=== PATIENT | female | born 1935 | race Caucasian/White ===

== ENCOUNTER 2019-07-24 13:27 | Inpatient (IN) ==
[2019-07-24] MEDS ORDERED: ASPIRIN PO ONE (13:34)
[2019-07-24] MEDS ORDERED: NITROGLYCERIN SL ONE (13:48)
[2019-07-24 13:57] LABS: BASO# 0.02 X1000 (0.0-0.2); BASO% 0.4 % (0.0-0.8); EOS# 0.08 X1000 (0.0-0.7); EOS% 1.5 % (0.0-10.0); HEMATOCRIT 41.8 % (37.0-47.0); IMM GRAN# 0.01 X1000 (0.0-0.04); IMM GRAN% 0.2 % (0.0-0.5); LYMPH# 1.06 X1000 (1.2-3.4); LYMPH% 20.4 % (20.5-51.1); MCH 30.5 PG (27-31); MCHC 31.1 g/dL (33-37); MCV 98.1 FL (81-99); MONO# 0.56 X1000 (0.11-0.59); MONO% 10.8 % (1.7-9.3); MPV 10.8 FL (7.4-10.4); NEUT# 3.47 X1000 (1.4-6.5); NEUT% 66.7 % (42.2-75.2); PLT 206 X1000 (130-400); RBC 4.26 XMIL (4.2-5.4); RDW 14.6 % (11.5-14.5)
[2019-07-24 14:07] LABS: INR 2.35; PROTIME 27.1 Seconds (11.0-16.0)
[2019-07-24 14:08] LABS: PTT 43.4 Seconds (22.3-41.8)
[2019-07-24 14:14] LABS: AGAP 11; ALBUMIN 4.7 g/dL (3.5-5.0); ALKALINE PHOSPHATASE 76 U/L (32-104); BUN 13 mg/dL (8-22); CALCIUM 9.9 mg/dL (8.8-10.2); CHLORIDE 100 mmol/L (98-107); CK PROFILE 123 U/L (24-173); COSMO 288; CREATININE 0.7 mg/dL (0.5-0.9); ESTIMATED GFR > 60; GLUCOSE 146 mg/dL (70-104); GOT 40 U/L (10-30); GPT 17 U/L (10-36); POTASSIUM 4.9 mmol/L (3.5-5.1); SODIUM 143 mmol/L (136-145); TCO2 32 mmol/L (25-35); TOTAL PROTEIN 7.9 g/dL (6.3-8.3)
--- NOTE | 2019-07-24 14:20 | Diag Imaging Result Doc PS360 ---
EXAM: CHEST-PORTABLE HISTORY: cp TECHNIQUE: Single view COMPARISON: 11/23/2016 FINDINGS: The lungs are well expanded. There are sternal wires. The heart is mildly enlarged. No pulmonary edema. Tiny right pleural effusion with basilar atelectasis. No consolidation. IMPRESSION: Cardiomegaly with a small right pleural effusion and basilar atelectasis Electronically signed by Khadar Wise 07/24/2019 2:17 PM
[2019-07-24] MEDS ORDERED: LASIX IV ONE (14:27)
--- NOTE | 2019-07-24 16:58 | EKG Report ---
Test Performed on : 07/24/2019 4:50:00 PM Test Reason : chest pain Blood Pressure : / mmHG Vent. Rate : 050 BPM Atrial Rate : 053 BPM P-R Int : 000 ms QRS Dur : 106 ms QT Int : 404 ms P-R-T Axes : 000 042 071 degrees QTc Int : 368 ms Junctional rhythm. Incomplete right bundle branch block Nonspecific ST and T wave abnormality Abnormal ECG When compared with ECG of 24-JUL-2019 13:37, (Unconfirmed) Junctional rhythm. has replaced Atrial fibrillation. Nonspecific T wave abnormality no longer evident in Inferior leads Nonspecific T wave abnormality has replaced inverted T waves in Lateral leads Unconfirmed Result
[2019-07-24] MEDS: ZOCOR PO SCH (21:03)
[2019-07-24] MEDS: COUMADIN PO SCH (21:03)
--- NOTE | 2019-07-25 00:52 | HISTORY AND PHYSICAL ---
CHIEF COMPLAINT: Chest pain and burping. HISTORY OF PRESENT ILLNESS: Patient is a very pleasant 84-year-old female who presented to the emergency department noting that she is having excessive burping, belching, chest pressure. It started last night when awake and came back this morning and since worsened. Therefore, she came to the ER. States she normally does not have any kind of burping, belching or chest pressure. Did have a CABG in 2000. Does not have any extenuation of this since then. 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 Concepcion. PAST MEDICAL HISTORY: Atrial fibrillation, coronary artery disease, hypertension, hyperlipidemia, history of [place], status post CABG in 2000, reflux, CVA, history of thyroid cancer. SURGICAL HISTORY: Positive for CABG. FAMILY HISTORY: Noncontributory. SOCIAL HISTORY: She does not smoke or drink. She is . Dr. Crabtree is her primary care. ALLERGIES: Mobic and Vioxx. MEDICATIONS: Synthroid 200, simvastatin 20, digoxin 125, diltiazem 60 q.6, furosemide 40, Imdur 30, MiraLAX 17, potassium, Coumadin. REVIEW OF SYSTEMS: As noted above. States she has been tired, fatigued maybe more so than usual. She has had increasing shortness of breath, dyspnea. She has had increasing burping, belching with some chest pressure. Denies any radiation of said pain or pressure. Denies any cough or nasal congestion. Denies dysuria, urinary frequency, urgency, hesitancy. Denies any polyuria or polydipsia. PHYSICAL EXAMINATION: VITAL SIGNS: Reviewed. She is afebrile. Temperature 98 degrees, pulse 60s although the family notes that her heart rate has been as low in the 30s, BP 147/82, saturation 95% on room air. GENERAL: Patient is awake. She is pleasant. She is in mild respiratory breath but the family seems to acknowledge that this is her chronic state. HEENT: Normocephalic. NECK: Supple. CARDIOVASCULAR: Currently rate controlled, irregular. CHEST: Clear and nonlabored. No wheezing. ABDOMEN: Soft, nondistended, nontender. EXTREMITIES: Moves all extremities. NEUROLOGIC: No changes. LABORATORIES: Reviewed. BNP 4670. INR 2.35. Glucose 146. ASSESSMENT: 1. Bradycardia, although currently rate controlled. 2. Atrial fibrillation. 3. Cardiomegaly. 4. Known coronary artery disease status post CABG in 2000. 5. Hypothyroidism. 6. Hyperglycemia. PLAN: We are going to admit her to the hospital, transfer her to [facility] to the PVC unit so she can be closely monitored. Consult Cardiology. Further orders as needed. We will check troponin and we will rule out [place]. cc: Panda Vega MD
[2019-07-25 00:56] LABS: URINE SOURCE CLEAN CATCH
[2019-07-25 01:01] LABS: BILIRUBIN URINE NEGATIVE (NEGATIVE); BLOOD URINE NEGATIVE (NEGATIVE); COLOR YELLOW; GLUCOSE URINE NEGATIVE (NEGATIVE); KETONE URINE NEGATIVE (NEGATIVE); LEUKOCYTES URINE NEGATIVE (NEGATIVE); NITRITE URINE NEGATIVE (NEGATIVE); PROTEIN URINE NEGATIVE (NEGATIVE); SP GRAVITY URINE 1.013; TURBIDITY URINE CLEAR (CLEAR); UR EPITHELIAL CELLS <10 /HPF (<10); URINE BACTERIA NEGATIVE /HPF; URINE RBC <10 /HPF (<10); URINE WBC <10 /HPF (<10); UROBILINOGEN URINE NORMAL (NORMAL)
[2019-07-25] MEDS: SYNTHROID PO SCH (06:08)
[2019-07-25 06:33] LABS: HEMATOCRIT 39.1 % (37.0-47.0); HEMOGLOBIN 12.6 g/dL (12.0-16.0); MCH 32.1 PG (27-31); MCHC 32.2 g/dL (33-37); MCV 99.7 FL (81-99); MPV 10.7 FL (7.4-10.4); RBC 3.92 XMIL (4.2-5.4); RDW 14.7 % (11.5-14.5); WBC 4.02 X1000 (4.8-10.8)
[2019-07-25 07:09] LABS: AGAP 9; ALB/GLOB RATIO 1.2; ALBUMIN 3.6 g/dL (3.5-5.0); ALKALINE PHOSPHATASE 59 U/L (32-104); BUN 13 mg/dL (8-22); CHLORIDE 99 mmol/L (98-107); COSMO 284; CREATININE 0.7 mg/dL (0.5-0.9); ESTIMATED GFR > 60; GLUCOSE 71 mg/dL (70-104); GOT 27 U/L (10-30); GPT 13 U/L (10-36); MAGNESIUM 2.1 mg/dL (1.5-2.7); POTASSIUM 3.6 mmol/L (3.5-5.1); SODIUM 143 mmol/L (136-145); TCO2 35 mmol/L (25-35); TOTAL BILIRUBIN 0.48 mg/dL (0.20-1.00); TOTAL PROTEIN 6.6 g/dL (6.3-8.3)
[2019-07-25] MEDS: KLOR-CON PO SCH (08:44)
[2019-07-25] MEDS: LASIX PO SCH (08:44)
--- NOTE | 2019-07-25 10:03 | EKG Report ---
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 Rate : 073 BPM Atrial Rate : 267 BPM P-R Int : 000 ms QRS Dur : 104 ms QT Int : 352 ms P-R-T Axes : 000 068 -60 degrees QTc Int : 387 ms Atrial fibrillation. with premature ventricular or aberrantly conducted complexes. Incomplete right bundle branch block ST & T wave abnormality, consider lateral ischemia Abnormal ECG When compared with ECG of 23-NOV-2016 22:27, Inverted T waves have replaced nonspecific T wave abnormality in Lateral leads Unconfirmed Result
--- NOTE | 2019-07-25 13:49 | CARDIOLOGY CONSULTATION ---
DATE: 07/25/2019 HISTORY OF PRESENT ILLNESS: An 84-year-old lady with known history of coronary artery disease, coronary artery bypass grafting, atrial fibrillation, who presented to the emergency room with having chest pressure and associated with belching, which was there off and on for 1 to 2 days prior to her coming to the emergency room. She came to the emergency room. Electrocardiogram revealed atrial fibrillation with nonspecific ST-T changes. However, telemetry there in the [facility] Emergency Room revealed a heart rate from going into the 20s and 30s. The patient was subsequently admitted at [facility]. She does not complain of any palpitations. She does not have any dizziness or syncope. The main reason for her coming was the chest pressure she has had. This morning she has been pain-free. She feels well. There is no orthopnea, paroxysmal nocturnal dyspnea. She has chronic shortness of breath which is grade 2- 3. This has been stable. REVIEW OF SYSTEM: A 14-point review of systems was done. GI System: There is no history of nausea, vomiting, diarrhea. There is no history of hematemesis or melena. Central nervous system: No focal weakness to suggest a CVA or TIA. System: There is no dysuria or hematuria. PAST MEDICAL HISTORY: 1. Coronary artery disease, status post coronary artery bypass grafting in 2000 with saphenous vein graft to LAD, saphenous vein graft to OM, saphenous vein graft to PDA at [facility]. Last cardiac catheterization 2010. Saphenous vein graft to RCA was patent. Saphenous vein graft to diagonal was patent. Saphenous vein graft to LAD was ectatic with significant other 3 vessel disease. 2. History of systolic dysfunction. 3. Tricuspid regurgitation. 4. Pulmonary fibrosis, pulmonary insufficiency. 5. Pulmonary arterial hypertension. 6. Bilateral carotid disease status post right carotid endarterectomy in July 2004. 7. Chronic atrial fibrillation. 8. Anticoagulation therapy. 9. Hypertension. 10. Hyperlipidemia. 11. History of thyroidectomy. HOME MEDICATIONS: 1. Levothyroxine 0.2 mg a day. 2. Simvastatin 20 mg a day. 3. Potassium supplements. 4. Cardizem 60 mg p.o. q. 6 hourly. 5. Digoxin 0.125 mg a day. 6. Isosorbide mononitrate 30. 7. Lasix 40. 8. Coumadin as directed. ALLERGIES: She is allergic to meloxicam, rofecoxib. PHYSICAL EXAMINATION: Vital Signs: Blood pressure was 152/65. Cardiovascular: First and second heart sounds were heard. There was a soft systolic murmur. Respiratory System: Distant breath sounds. Scattered wheeze. Abdomen: Soft, nontender. There was no guarding or rigidity. Bowel sounds were heard. Central nervous system: Alert and was moving all 4 extremities. Extremities: Examination of extremities revealed no pedal edema. HEENT: Atraumatic, normocephalic. Pupils were equal and reacting to light. LABORATORY EXAMINATION: Revealed sodium 143, potassium 3.6, BUN 13, creatinine 0.7. Troponin T high sensitivities were normal with the level of 17. TSH 3.71. Liver function tests were normal. INR was 2.35. Hematology: WBC 4, hemoglobin 12.6, RBC 3.94, platelet count 157, hematocrit 39.1. IMAGING STUDIES: Chest x-ray: Cardiomegaly with basilar atelectasis. Small right pleural effusion. ASSESSMENT AND PLAN: 1. Ms. Linda Levi is an 84-year-old lady with history of atrial fibrillation, coronary artery disease, coronary artery bypass grafting, on anticoagulation therapy. 2. History of peripheral vascular disease. 3. Hypertension. She comes in comes in with complaints of having 2 days intermittent episodes of chest discomfort. 1. She has been ruled out for myocardial infarction by cardiac enzymes. 2. We will get an echocardiogram to assess cardiac and valvular function. 3. We will set her up to undergo a Cardiolite stress test to assess for and rule out ischemia. 4. As far as atrial fibrillation is concerned, she has had significant gustavo arrhythmias noted in the emergency room as mentioned above. I will discontinue the digoxin and decrease the dosage of Cardizem to 30 mg three times a day, and we will try titrate dosage if required. 5. Anticoagulation therapy. She is on Coumadin. INR is therapeutic. I have not made any changes. 6. Coronary artery disease, status post coronary artery bypass graft. If her stress test is abnormal and cardiac catheterization is required, the patient would like to have that done at [facility]. cc: Francisco Ballard MD
--- NOTE | 2019-07-25 18:41 | PROGRESS NOTE ---
DATE: 07/25/2019 INTERVAL HISTORY: Patient with no further chest heaviness or bloated feeling. No new complaints. Patient still with some intermittent bradycardia and mild tachycardia which are alternating. The patient has been largely asymptomatic. REVIEW OF SYSTEMS: Twelve point review of systems negative except as per interval history. LABS: WBC 4.0, hemoglobin 12.6, hematocrit 39.1, platelets 157,000. Sodium 143, potassium 3.6, BUN 13, creatinine 0.7, glucose 71, troponin negative x2. BNP 4670. Urinalysis unremarkable. IMAGING: Chest x-ray with minimal right pleural effusion and cardiomegaly otherwise but no acute process. VITALS: T-max 97.9 degrees, pulse 47 to 110, respirations 18, blood pressure 152/65, O2 saturation 95% on room air. PHYSICAL EXAMINATION: General: No acute distress, thin. Vitals as above. HEENT: Normocephalic, atraumatic moist. Moist mucous membranes. No cervical adenopathy. Cardiovascular: Bradycardic but regular at the time my exam, no murmurs noted. Pulmonary: Clear to auscultation bilaterally. No wheezing, rales or rhonchi. Abdomen: Soft, nontender, nondistended. Bowel sounds positive. Extremities: Peripheral pulses intact. No clubbing, cyanosis or edema. Neurologic: Cranial nerves grossly intact. No focal deficits identified. Psychiatric: Normal mood and affect. Awake, alert, oriented x3. ASSESSMENT AND PLAN: 1. Chest pressure. Patient's primary complaint of belching or bloating seems like it is likely benign and gastrointestinal related but she does endorse some dyspnea and substernal chest tightness which occur primarily with exertion and resolve with rest which does raise some concern for unstable angina. Otherwise cardiac workup has been largely unremarkable with negative troponins. EKG with bradycardia and an old right bundle branch block but no acute ST changes, does have moderately elevated BNP although not really any clinical sign of volume overload. Last echocardiogram was unremarkable although that was back in 2016. Given alternating bradycardia and tachycardia and substernal chest pressure worse with exertion, will ask cardiology to evaluate. At the very least I suspect we will need to decrease her dose of Cardizem which we are currently holding and she may end up needing stress test but we will see what Cardiology says. 2. Paroxysmal atrial fibrillation. No atrial fibrillation noted here but has had intermittent bradycardia. Holding home diltiazem currently. If we restart then will likely be at a lower dose. Continuing home Coumadin. INR was therapeutic. 3. Coronary artery disease, uncertain why she is not on aspirin but will try to clarify that. 4. Hypertension largely pretty good control on current medication. We will continue to monitor. 5. Hyperlipidemia. Continue statin. 6. Hypothyroidism. Continue Synthroid.
[2019-07-25] MEDS: IMDUR PO SCH (20:41)
[2019-07-25] MEDS: COUMADIN PO SCH (20:41)
[2019-07-25] MEDS: ZOCOR PO SCH (21:42)
[2019-07-26] MEDS: SYNTHROID PO SCH (06:29)
[2019-07-26] MEDS: KLOR-CON PO SCH (08:24)
[2019-07-26] MEDS: LASIX PO SCH (08:25)
[2019-07-26] MEDS: CARDIZEM PO SCH ×3 (08:25→20:17)
--- NOTE | 2019-07-26 14:47 | PROGRESS NOTE ---
DATE: 07/26/2019 INTERVAL HISTORY: Patient with no further chest heaviness. Still occasionally mildly bradycardic but no severe bradycardia like she had on admission. Cardiology planning on stress test in the morning. REVIEW OF SYSTEMS: Twelve point review of systems negative except as per interval history. LABS: WBC 4.0, hemoglobin 12.6, hematocrit 39.1, platelets 157,000. Complete metabolic panel unremarkable. VITALS: T-max 98.0 degrees, pulse of 52-79, respirations 17, blood pressure 93/62, O2 saturation 100% on 2 L by nasal cannula. ASSESSMENT AND PLAN: 1. Chest pressure, bradycardia. Patient's primary complaint of belching and bloating but also relates some dyspnea and substernal chest heaviness or tightness which occurs with exertion and resolves with rest. Some concern for unstable angina. Otherwise, cardiac workup has been negative with negative troponins. Did have fairly significant bradycardia on admission. Continued to have mild bradycardia since but not as severe. Reportedly had heart rate down into the 30s on initial presentation. Cardiology on board and planning a stress test in the morning for further evaluation. Holding home Cardizem currently. 2. Paroxysmal atrial fibrillation. Has been essentially normal sinus or sinus bradycardia here. Holding home diltiazem as above because of bradycardia. Continue home Coumadin. 3. Coronary artery disease, known. 4. Hypertension. Good control on current medication. Monitor. 5. Hyperlipidemia. Continue statin. 6. Hypothyroidism. Continue Synthroid.
[2019-07-26] MEDS: COUMADIN PO SCH (20:17)
[2019-07-26] MEDS: ZOCOR PO SCH (20:18)
[2019-07-26] MEDS: IMDUR PO SCH (20:18)
--- NOTE | 2019-07-26 20:23 | ECHO REPORT ---
ORDER DATE: 07/25/2019 ECHOCARDIOGRAPHIC MEASUREMENTS: 1. Interventricular septum 0.9. 2. Left ventricular posterior wall 0.8. 3. Diastolic diameter 4.8. 4. Left atrium 4. 5. Aorta 2.9. SUMMARY: 1. Atrial fibrillation was noted. 2. Aortic valve leaflets were sclerosed, trileaflet opening normally. 3. Pulmonic valve was normal. 4. Tricuspid valve was normal. 5. Mitral valve was normal. 6. There is moderate mitral annular calcification. 7. Normal left ventricular cavity size. 8. Normal left ventricular cavity size. Estimated ejection fraction of 50%. There is apical hypokinesis. 9. Normal left ventricular cavity size. Estimated ejection fraction of 50%. There is apical hypokinesis. 10. There is apical hypokinesis. 11. There is moderate biatrial enlargement. 12. There is a peak velocity across the aortic valve less than 2 m/sec. There is no aortic stenosis or regurgitation. 13. Mild tricuspid regurgitation. 14. Peak velocity across the tricuspid valve was 3.4 m/sec. 15. Pulmonary artery systolic pressure of 61 mmHg. 16. There is pulmonary arterial hypertension. 17. There is mild mitral regurgitation. 18. Peak velocity across aortic valve less than 2 m/sec. 19. There is no aortic stenosis or regurgitation . 20. Normal right ventricular cavity size. 21. Mild right ventricular systolic dysfunction 22. There is no pericardial effusion or obvious intracardiac mass or thrombus seen. cc: Francisco Ballard MD
[2019-07-27] MEDS: SYNTHROID PO SCH (06:35)
[2019-07-27 07:39] VITALS: BP 127/68
[2019-07-27] MEDS: CARDIZEM PO SCH ×2 (08:58→13:32)
[2019-07-27] MEDS ORDERED: LEXISCAN ONE (11:18)
[2019-07-27] MEDS: KLOR-CON PO SCH (13:31)
[2019-07-27] MEDS: LASIX PO SCH (13:31)
--- NOTE | 2019-07-27 13:48 | PROGRESS NOTE ---
DATE: 07/27/2019 SUBJECTIVE: I have seen her in the nuclear lab. She seems to be doing okay. No complaints. OBJECTIVE: Blood pressure 127/68, heart rate of 66, respiratory rate of 19, temp 97.6 degrees.Cardiovascular: Regular rate and rhythm. Pulmonary: Bilateral breath sounds clear to auscultation. GI: Was soft, nontender, nondistended. Bowel sounds are positive. Extremity: No clubbing. LABORATORY DATA: White count is 4, hemoglobin and hematocrit 12 and 39 platelets 157,000. Basic was normal. PROBLEM LIST: 1. Chest pain, bradycardia. The patient seems to be doing okay. Her workup is negative. Her stress test is pending but has been completed. 2. Atrial fibrillation with sinus bradycardia, possible sick sinus syndrome, but could also be related to Cardizem which has been held and her heart rate seems to be doing okay. Her digoxin level was never checked, maybe we should go ahead and try to check that although it has been several days since she has been off of it. DISPOSITION: If her stress test is negative, it is possible she could go home now. She is on a lower dose Cardizem, really a 90 mg dose. She previously was on a 240 mg dose. Her INR is therapeutic as well but again that was several days ago. cc: Sarwat Hunter MD
--- NOTE | 2019-07-27 14:15 | Diag Imaging Result Document ---
PROCEDURE NAME: MYOCARDIAL PERF SCAN, STR/REST - 07/27/2019 SUMMARY: The patient was administered 11.4 mCi of technetium 99m sestamibi after which resting cardiac images were obtained. The patient was subsequently administered Lexiscan 0.4 mg intravenous, after which the heart rate went from 82 beats per minute to 96 beats per minute. The blood pressure went from 138/75 to 149/59. With Lexiscan, the patient denied chest discomfort. Following the administration of Lexiscan, the patient was administered 33.9 mCi of technetium 99m sestamibi, after which gated stress cardiac images were obtained. Baseline ECG demonstrated atrial fibrillation with occasional premature ventricular or aberrantly conducted complex and nonspecific ST and T-wave abnormality. With Lexiscan, baseline ST and T- wave abnormality did not change significantly. SPECT images were reconstructed in the short, horizontal, and vertical axis. Review of these images demonstrated a medium size severe defect in uptake involving the anterior apical region of the left ventricle on stress images which appears unchanged on resting images. No significant reversibility is evident. Gated images demonstrate a calculated left ejection fraction of 48% with apical severe hypokinesis to akinesis. CONCLUSIONS: 1. Adequate response to Lexiscan. 2. Clinically negative for chest pain. 3. Electrocardiographically baseline ST and T-wave abnormality did not change significantly following administration of Lexiscan. 4. Lexiscan sestamibi images demonstrate fixed severe medium size defect in the apex of the left ventricle with corresponding severe hypokinesis to akinesis as described, consistent with previous apical infarction. There is no convincing scintigraphic evidence of inducible myocardial ischemia. Calculated left ventricular ejection fraction is 48%. cc: MD Francisco Clark MD
--- NOTE | 2019-08-07 10:27 | PROVIDER DOCUMENTATION ---
This chart was entered by Brittany Campbell Scribe, acting as scribe for Estella Barboza MD. HPI-Chest Pain - General Chief Complaint: Chest Pain Stated Complaint: BURPING/HEAVY CHEST Time Seen by Provider: 07/24/19 13:40 Source: patient, family () Allergies/Adverse Reactions: Patient Allergies Allergy/AdvReac Type Severity Reaction Status Date / Time meloxicam [From Mobic] Allergy Unknown Verified 09/22/15 16:48 rofecoxib [From Vioxx] Allergy Unknown Verified 09/22/15 16:48 Home Medications: Home Medication List Medication Instructions Recorded Confirmed Last Taken Type Levothyroxine [Synthroid] 0.2 mg PO DAILY 08/12/14 07/24/19 09/22/15 09:00 History Simvastatin 20 mg PO HS 08/12/14 07/24/19 09/21/15 21:00 History Digoxin [Digox] 125 mcg PO DAILY 09/22/15 07/24/19 09/22/15 09:00 History Diltiazem [Cardizem] 60 mg PO Q6HR 09/22/15 07/24/19 09/22/15 09:00 History Furosemide 40 mg PO DAILY 09/22/15 07/24/19 09/22/15 History Isosorbide Mononitrate E.r. [Imdur] 30 mg PO HS 09/22/15 07/24/19 09/21/15 21:00 History Polyethylene Glycol 3350 [Miralax] 17 gm PO DAILY 09/22/15 07/24/19 09/22/15 09:00 History Potassium Chloride [Klor-Con M20] 20 meq PO DAILY 09/22/15 07/24/19 09/22/15 09:00 History Nitroglycerin 1 tab SL DIRECTED 11/23/16 07/24/19 Unknown History Warfarin [Coumadin] 4 mg PO QHS 07/24/19 07/24/19 Unknown History - History of Present Illness-CP Nature of Presenting Problem: 84 yowf presents to the ed with c/o excessive belching and chest pressure onset last night then resolved and came back this am and has worsened. pt sees dr lebron cardiology and last appointment was in mar 2019. pt has cardiac hx with CABG in 2000 Location: reports: substernal Chest Pain Radiation: reports: no radiation Quality of Pain: reports: fullness, pressure Severity in ED: moderate Onset/Duration: last night Timing: still present, intermittent, getting worse Context/Activities at Onset: reports: light activity Modifying Factors: improves with: nothing Associated Symptoms: reports: shortness of breath. denies: abdominal pain, nausea, vomiting Nitro Today/Relief: no nitro taken today Aspirin Treatment Today: 325 mg x 1, provided by ED Prior Chest Pain/Cardiac Workup: reports: cardiac cath, stress test, other (CABG) Similar Symptoms Previously?: Yes Recently Seen Here or By Another Healthcare Provider: No Review of Systems - Adult - REVIEW OF SYSTEMS - ADULT Constitutional: denies: chills, fever Eyes: reports: no symptoms reported Ears, Nose, Mouth & Throat: reports: no symptoms reported Cardiovascular: reports: see HPI, chest pain, irregular heart rate (hx of afib). denies: palpitations, syncope Respiratory: reports: shortness of breath. denies: cough, wheezing Gastrointestinal: denies: abdominal pain, diarrhea, frequent heartburn, nausea, vomiting Genitourinary: reports: no symptoms reported Musculoskeletal: denies: back pain, neck pain Integumentary: reports: no symptoms reported Neurological: denies: dizziness/vertigo, headache/migraines Psychiatric: reports: no symptoms reported Endocrine: reports: no symptoms reported Hematologic/Lymphatic: reports: no symptoms reported Allergic/Immunologic: reports: no symptoms reported All Other Systems: Reviewed and Negative Past History - Adult - PAST MEDICAL HISTORY-ADULT Review of Records: reports: Old Records Reviewed, Nursing Assessment Review, Medications Reviewed, Social history reviewed & non-contributory. Major Childhood Illnesses: reports: denies history Cardiovascular: reports: A-Fib, CAD, HTN, hyperlipidemia, OR, other (CABG) Respiratory: reports: denies history Gastrointestinal: reports: GERD Obstetrical/Gynecological: reports: denies history Genitourinary: reports: denies history Musculoskeletal: reports: denies history Hand Dominance: Right Handed Neurological: reports: CVA Psychiatric: reports: denies history Endocrine/Immune: reports: thyroid disorder ( thyroid cancer) Other Conditions: reports: denies history - PRIOR SURGERIES/PROCEDURES Surgical/Procedure History: reports: CABG, other (cataract removal) - IMMUNIZATION STATUS Childhood Immunizations: See Nurse Assessment Flu Vaccine: See Nurse Assessment - FAMILY HISTORY Family History: reviewed, not pertinent - SOCIAL HISTORY Smoking: denies Substance Use: denies Living Situation: family Physical Exam-General - PHYSICAL EXAM-ADULT Initial Vital Signs Reviewed: Yes - CONSTITUTIONAL General Appearance: appears well, alert, no apparent distress, thin - EYES Eyes: PERRL/EOMI, pink conjunctivae - HEAD, EARS, NOSE, MOUTH & THROAT HENMT: moist mucous membranes - NECK Neck: non-tender, full range of motion, supple, normal inspection - RESPIRATORY Respiratory: chest non-tender, lungs clear, normal breath sounds, no pleuratic chest pain, no respiratory distress, no accessory muscle use - CARDIOVASCULAR Cardiovascular: irregularly irregular, other (c/o belching and pessure in chest) - CHEST (BREASTS) Chest/Breast: other (well healed CABG scar) - GASTROINTESTINAL (ABDOMEN) Abdominal Exam: normal bowel sounds, non tender, soft - GENITOURINARY Female Genitalia/Pelvic Exam: deferred Rectal Exam: deferred Hemoccult Exam: deferred - LYMPHATIC Lymphatic: no adenopathy - MUSCULOSKELETAL Back Exam: no CVA tenderness, no vertebral tenderness Extremity: normal range of motion, non-tender, normal inspection - SKIN Integumentary: normal color, normal turgor, warm/dry - NEUROLOGIC Neurologic: grossly normal - PSYCHIATRIC Psych/Mental Status: normal mood/affect, normal thought content, normal thought process, oriented x 3 - HEART Score HEART Score: History: Slightly Suspicious HEART Score: ECG: Non-Specific Repolarization Disturbance/LBBB/PM HEART Score: Age: > or = 65 Years HEART Score: Risk Factors for Atherosclerotic Disease: > or = 3 Risk Factors or History of Atherosclerotic Disease Progress - PLAN OF CARE/RESULTS Progress/Plan/Lab Results: Vital Signs - 8 hr 07/24/19 13:30 07/24/19 13:33 07/24/19 15:55 Temperature 98 F 98 F Pulse Rate 76 56 L Respiratory Rate 18 20 Blood Pressure 147/82 126/68 O2 Sat by Pulse Oximetry 95 95 07/24/19 16:35 Temperature Pulse Rate 56 L Respiratory Rate 20 Blood Pressure 153/73 O2 Sat by Pulse Oximetry 95 Laboratory Results - last 24 hr 07/24/19 07/24/19 07/24/19 13:40 13:40 13:40 WBC 5.20 RBC 4.26 Hgb 13.0 Hct 41.8 MCV 98.1 MCH 30.5 MCHC 31.1 L RDW Std Deviation 14.6 H Plt Count 206 MPV 10.8 H Immature Gran % (Auto) 0.2 Neut % (Auto) 66.7 Lymph % (Auto) 20.4 L Dag[place] % (Auto) 10.8 H Eos % (Auto) 1.5 Baso % (Auto) 0.4 Immature Gran # (Auto) 0.01 Neut # (Auto) 3.47 Lymph # (Auto) 1.06 L [place] # (Auto) 0.56 Eos # (Auto) 0.08 Baso # (Auto) 0.02 PT INR PTT (Actin FS) Sodium 143 Potassium 4.9 Chloride 100 Carbon Dioxide 32 Anion Gap 11 BUN 13 Creatinine 0.7 Estimated GFR/1.73 m2 > 60 BUN/Creatinine Ratio 19 Glucose 146 H Calculated Osmolality 288 Calcium 9.9 Total Bilirubin 0.60 AST 40 H ALT 17 Alkaline Phosphatase 76 Creatine Kinase 123 Troponin T High Sens [id number] Pept 4670 H Total Protein 7.9 Albumin 4.7 Globulin 3.0 Albumin/Globulin Ratio 1.0 07/24/19 07/24/19 13:40 13:40 WBC RBC Hgb Hct MCV MCH MCHC RDW Std Deviation Plt Count MPV Immature Gran % (Auto) Neut % (Auto) Lymph % (Auto) Daggett % (Auto) Eos % (Auto) Baso % (Auto) Immature Gran # (Auto) Neut # (Auto) Lymph # (Auto) Daggett # (Auto) Eos # (Auto) Baso # (Auto) PT 27.1 H INR 2.35 PTT (Actin FS) 43.4 H Sodium Potassium Chloride Carbon Dioxide Anion Gap BUN Creatinine Estimated GFR/1.73 m2 BUN/Creatinine Ratio Glucose Calculated Osmolality Calcium Total Bilirubin AST ALT Alkaline Phosphatase Creatine Kinase Troponin T High Sens 17 Usg-H-Hlbwhxrocxn Pept Total Protein Albumin Globulin Albumin/Globulin Ratio Orders Category Date Time Status Cardiac Monitoring DIRECTED Care 07/24/19 13:34 Active Oxygen Therapy- ED Nursing DIRECTED Care 07/24/19 13:34 Active Saline Loc NOW Care 07/24/19 13:34 Active CHEST-PORTABLE [RAD] Stat Exams 07/24/19 13:58 Completed CBC WITH ELECTRONIC DIFF [HEME] Stat Lab 07/24/19 13:40 Completed CBC WITH NO DIFF [HEME] Routine Lab 07/25/19 05:00 Ordered CK PROFILE [SP CHEM] Stat Lab 07/24/19 13:40 Completed CK PROFILE [SP CHEM] Urgent Lab 07/24/19 16:46 Received COMPREHENSIVE METABOLIC PANEL [CHEM] Routine Lab 07/25/19 05:00 Ordered COMPREHENSIVE METABOLIC PANEL [CHEM] Stat Lab 07/24/19 13:40 Completed MAGNESIUM [CHEM] Routine Lab 07/25/19 05:00 Ordered PRO B-NATRIURETIC PEPTIDE Stat Lab 07/24/19 13:40 Completed PROTIME WITH INR [COAG] Stat Lab 07/24/19 13:40 Completed PTT [COAG] Stat Lab 07/24/19 13:40 Completed TROPONIN T HIGH SENSITIVITY Stat Lab 07/24/19 13:40 Completed TROPONIN T HIGH SENSITIVITY Stat Lab 07/24/19 16:46 Received TSH Routine Lab 07/25/19 05:00 Ordered VITAMIN B12 Routine Lab 07/24/19 13:40 Received Aspirin Med 07/24/19 13:34 Discontinued 325 mg PO NOW ONE Furosemide [Lasix] Med 07/24/19 14:27 Discontinued 40 mg IV NOW ONE Furosemide [Lasix] Med 07/25/19 09:00 Active 40 mg PO DAILY Levothyroxine [Synthroid] Med 07/25/19 07:00 Active 200 microgm PO DAILY@0700 Nitroglycerin Sl [Nitroglycerin] Med 07/24/19 13:48 Discontinued 0.4 mg SL NOW ONE Potassium Chloride E.r. [Klor-Con] Med 07/25/19 09:00 Active 20 meq PO DAILY SIMVAstatin [Zocor] Med 07/24/19 21:00 Active 20 mg PO HS Warfarin [Coumadin] Med 07/24/19 21:00 Active 4 mg PO QHS CP/SOB/Palp >45 yrs of Age Stat Oth 07/24/19 13:34 Ordered EKG [EKG] Stat Ther 07/24/19 13:34 Ordered Transfer/Admit Order [TRANSFER] Routine Transfer 07/24/19 16:19 Ordered Result Diagrams: 07/24/19 13:40 07/24/19 13:40 - REASSESSMENT Reassessment #1 Time Reassessed: 14:53 Status: unchanged - EKG 1 Time of EKG reading by physician:: 13:37 EKG Read and Signed by:: Estella Barboza EKG Interpretation (*Must complete 3 of following elements*): Abnormal Rate: 73 Rhythm: afib w/premature ventricular or aberrantly complexes Caldwell: normal QRS: RBB (incomplete) MD Interval: normal Comments: st and t wave abnormality, consider lateral ischemia 2 Time of EKG reading by physician:: 16:50 EKG Read and Signed by:: Estella Barboza EKG Interpretation (*Must complete 3 of following elements*): Abnormal Rate: 50 Rhythm: junctional rhythm Caldwell: normal QRS: RBB (incomplete) MD Interval: normal Prior EKG Comparison: changes noted Comments: nonspecific ST and T wave abnormality - XRAY 1 XRAY: Bilateral XRAY Study: Chest Impression: See EMR Report (EXAM: CHEST-PORTABLE HISTORY: cp TECHNIQUE: Single view COMPARISON: 11/23/2016 FINDINGS: The lungs are well expanded. There are sternal wires. The heart is mildly enlarged. No pulmonary edema. Tiny right pleural effusion with basilar atelectasis. No consolidation. IMPRESSION: Cardiomegaly with a small right pleural effusion and basilar atelectasis Electronically signed by Khadar Wise 07/24/2019 2:17 PM 07/24/19 1417 Interpreting Physician: Khadar Wise MD Dictated Date/Time: 07/24/19 1416 cc: Estella Barboza MD; Gulshan Crabtree MD) - CONSULTS/PCP/HOSPITALIST Notification #1 *Consult/PCP/Hospitalist*: cardiology dr farrell Time Discussed: 15:04 (dr farrell wants pt to be admitted and sent to [facility]) Reason/Comments: phone consult Consult Disposition: Admit Departure - Departure Date of Disposition Decision: 07/24/19 Time of Disposition Decision: 15:09 DIAGNOSIS: Bradycardia Congestive heart failure Qualifiers: Heart failure type: combined systolic and diastolic Heart failure chronicity: chronic Qualified Code(s): I50.42 - Chronic combined systolic (congestive) and diastolic (congestive) heart failure Atrial fibrillation Qualifiers: Atrial fibrillation type: unspecified Qualified Code(s): I48.91 - Unspecified atrial fibrillation Disposition: ADMITTED INPATIENT 09 Certified Medical Emergency: Emergent Condition: Fair Referrals and Follow-Ups: Gulshan Crabtree MD [Primary Care Provider] - - Critical Care Note This patient required my direct & personal management of CC.: Yes Total Time (mins): 32 Critical Care Statement: This patient required my direct personal management to treat or rule out processes, the absence of which, could potentiallly result in sudden, clinically significant life or limb threatening deterioration. Attestation - Physician/ NICOLAS Attestation Patient care was provided by Advanced Practice Provider:: No The physician spent face to face time with patient:: Yes Advanced Practice Provider documentation review:: Supervising physician onsite and consulted in the evaluation and care of this patient. The physician did have a face to face encounter with the patient. This chart was documented by the indicated scribe, (Brittany Campbell Scribe) and accurately reflects the services I performed and decisions made by me, Estella Barboza MD, as attested by the provider's signature.
--- NOTE | 2019-08-31 12:23 | DISCHARGE SUMMARY ---
ADMISSION DATE: 07/24/2019 DISCHARGE DATE: 07/27/2019 DISCHARGE DIAGNOSES: 1. Chest pain. 2. Bradycardia in the setting of atrial fibrillation with possible sick sinus syndrome. CONSULTATIONS: Cardiology. HISTORY AND HOSPITAL COURSE: Briefly, this is an 84-year-old female coming in with burping, belching, chest pressure. She has a history of CABG in 2000. She was admitted. Echocardiogram showed on the EF of 50%. She had apical hypokinesis. Cardiology, she underwent echocardiogram and Cardiolite stress test. Digoxin was discontinued. Cardizem was adjusted. She was on Coumadin, which was therapeutic. Stress test on the did not show inducible myocardial ischemia. She had a large scar and hypokinesis, but that was related to her previous infarct. EF was 48%. She was felt stable for discharge on the . DISCHARGE MEDICATIONS: Warfarin 4 daily, Lasix 40 daily, Imdur 30 daily, Klor-Con 20 daily, MiraLAX 17 daily, nitroglycerin 0.4 daily, simvastatin 20 daily, Synthroid 0.2 daily, and Cardizem was 30 t.i.d., which was a new medication. FOLLOWUP: She will need to follow up with Dr. Crabtree and Dr. Ballard. TIME SPENT: A 32 minute discharge. cc: Sarwat Hunter MD
== END 2019-07-27 15:24 | disposition home or self-care (01) | DRG 310 ==
LOC: P.ED 13:27 → 2N 17:57 → SUATTDRO 17:57
PROVIDERS: ATTEND Internal Medicine